=== PATIENT | male | born 1990 | race Caucasian/White ===

== ENCOUNTER 2021-07-29 21:56 | Emergency (ER) | payer OTHER ==
--- NOTE | 2021-07-29 22:37 | CR ---
PROCEDURE INFORMATION: Exam: XR Left Foot Exam date and time: 07/29/2021 10:20 PM Age: 30 years old Clinical indication: Other: Lateral pain; Additional info: Foot pain after fall TECHNIQUE: Imaging protocol: XR Left foot. Views: 1 or 2 views. COMPARISON: No relevant prior studies available. FINDINGS: Bones/joints: Two views demonstrate no evidence of fracture. No malalignment. Soft tissues: Mild lateral soft tissue swelling noted. IMPRESSION: No evidence of acute osseous injury
[2021-07-29] MEDS ORDERED: Ketorolac 30 MG/ML SDV IM ONE (23:20)
--- NOTE | 2021-07-29 23:22 | EDM.PDOC ---
ED HPI GENERAL MEDICAL PROBLEM - General Chief Complaint: Lower Extremity Injury/Pain Stated Complaint: LEFT FOOT LEFT SIDE PAIN. Time Seen by Provider: 07/29/21 23:17 Source of Information: Reports: Patient History Limitations: Reports: No Limitations - History of Present Illness INITIAL COMMENTS - FREE TEXT/NARRATIVE: 30 y/o M c/o L foot pain after slipping getting out of his truck and striking his lateral foot on the running board of the truck. Pn is 3/10 at rest and 7/10 weight bearing. No numbness or tingling to foot. No reported other injury. No loc, meds or allergies. Left Foot Pain Score (Numeric/FACES): 3 - Related Data Allergies Allergy/AdvReac Type Severity Reaction Status Date / Time No Known Allergies Allergy Verified 07/29/21 22:22 Home Meds: Home Meds Cetrazine 07/29/21 [History] Cymbalta 07/29/21 [History] buPROPion HCL [Bupropion Xl] 300 mg PO 07/29/21 [History] buPROPion [buPROPion XL] 150 mg PO 07/29/21 [History] Past Medical History Psychiatric History: Reports: Depression Dermatologic History: Reports: Other (See Below) Other Dermatologic History: "skin condition" Social & Family History - Family History Family Medical History: No Pertinent Family History - Tobacco Use Tobacco Use Status *Q: Unknown Ever Used Tobacco - Caffeine Use Caffeine Use: Reports: Coffee, Energy Drinks - Recreational Drug Use Recreational Drug Use: No Review of Systems - Review of Systems Review Of Systems: Comprehensive ROS is negative, except as noted in HPI. ED EXAM, GENERAL - Physical Exam Exam: See Below Exam Limited By: No Limitations General Appearance: Alert, No Apparent Distress Respiratory/Chest: No Respiratory Distress, Lungs Clear, Normal Breath Sounds, No Accessory Muscle Use, Chest Non-Tender Cardiovascular: Normal Peripheral Pulses, Regular Rate, Rhythm, No Edema, No Gallop, No JVD, No Murmur, No Rub Peripheral Pulses: 2+: Posterior Tibial (L), Posterior Tibial (R), Dorsalis Pedis (L), Dorsalis Pedis (R) Extremities: Other (Left circulation tender to palpation to lateral side. No obvious deformities. CMS intact. pedal pulses intact. ) Course - Vital Signs Last Recorded V/S: Last Vital Signs Temp 96.8 F L 07/29/21 22:18 Pulse 90 07/29/21 22:18 Resp 17 07/29/21 22:18 BP 130/84 07/29/21 22:18 Pulse Ox 96 07/29/21 22:18 - Re-Assessments/Exams Free Text/Narrative Re-Assessment/Exam: 07/29/21 23:19 The Xray is negative for any acute fracture. I will give the pt IM toradol for pain and discharge him. Departure - Departure Time of Disposition: 23:20 Disposition: Home, Self-Care 01 Condition: Good Clinical Impression: Foot pain, left - Discharge Information *PRESCRIPTION DRUG MONITORING PROGRAM REVIEWED*: Not Applicable *COPY OF PRESCRIPTION DRUG MONITORING REPORT IN PATIENT [facility]: Not Applicable Additional Instructions: Use tylenol and Ibuprofen for pain as needed. Ice and rest your foot. If any new symptoms or concerns develop contact your primary care facility or return to the ER. Sepsis Event Note (ED) - Evaluation Sepsis Screening Result: No Definite Risk - Focused Exam Vital Signs: Vital Signs Temp Pulse Resp BP Pulse Ox 07/29/21 22:18 96.8 F L 90 17 130/84 96
== END 2021-07-29 23:52 | disposition home or self-care (01) ==
LOC: DL.ED 21:56
DX: M79.672 Pain in left foot (principal)
CPT/HCPCS: 73620-LT; 96372; 99283-25; J1885

== ENCOUNTER 2022-02-24 19:17 | Emergency (ER) | payer OTHER ==
[2022-02-24] MEDS ORDERED: Acetaminophen 325 MG Tab PO ONE (20:00)
[2022-02-24] MEDS ORDERED: Silver Sulfadiazine 1% Crm 50 GM Tube TOP ONE (20:05)
== END 2022-02-24 21:06 | disposition home or self-care (01) ==
LOC: DL.ED 19:17
DX: S40.212A Abrasion of left shoulder, initial encounter (principal); S80.212A Abrasion, left knee, initial encounter; S50.812A Abrasion of left forearm, initial encounter; S50.311A Abrasion of right elbow, initial encounter; V29.9XXA Motorcycle rider (driver) (passenger) injured in unspecified traffic accident, initial encounter; Y92.410 Unspecified street and highway as the place of occurrence of the external cause
CPT/HCPCS: 73502; 73610; 99284; A9270

== ENCOUNTER 2023-10-20 15:13 | Emergency (ER) | payer BC, OTHER ==
[2023-10-20 16:54] LABS: CORONAVIRUS COVID-19 NAA NEGATIVE (NEGATIVE); INFLUENZA A NAA POSITIVE (NEGATIVE); INFLUENZA B NAA NEGATIVE (NEGATIVE); RESPIRATORY SYNCYTIAL VIR NAA NEGATIVE (NEGATIVE)
== END 2023-10-20 18:13 | disposition home or self-care (01) ==
LOC: DL.ED 15:13
DX: J10.1 Influenza due to other identified influenza virus with other respiratory manifestations (principal)
CPT/HCPCS: 0241U; 87081; 87430; 99283; 99282